=== PATIENT | female | born 1970 | race American Indian/Alaskan Native ===

== ENCOUNTER 2016-10-06 09:30 | Inpatient (IN) | payer MEDICARE ==
--- NOTE | 2016-11-17 10:37 | Anesthesia Consultation ---
Anesthesia Consult and Med Hx - Airway Anesthetic Teeth Evaluation: Good ROM Head & Neck: Adequate Mental/Hyoid Distance: Adequate Mallampati Class: Class III Intubation Access Assessment: Probably Good - Pulmonary Exam CTA: Yes - Cardiac Exam Cardiac Exam: RRR - Pre-Operative Health Status ASA Pre-Surgery Classification: ASA3 Proposed Anesthetic Plan: General - Pulmonary Hx Smoking: Yes (1/2 PPD FOR 5 YRS, QUIT 05/2016) Hx Respiratory Symptoms: (h/o PE (2014)) Hx Sleep Apnea: Yes (10 years uses CPAP nightly) - Cardiovascular System Hx Hypertension: Yes (FOR 7YRS) - Central Nervous System Hx Neuromuscular Disorder: Yes (osteoarthritis) Hx Psychiatric Problems: Yes (anxiety, depression) - Gastrointestinal Hx Gastroesophageal Reflux Disease: Yes (controlled) - Hematic Hx Anemia: Yes (chronic) - Other Systems Hx Cancer: No Hx Obesity: Yes (BMI 73.8) - Additional Comments Anesthesia Medical History Comments: Pt states no problem with prior anesthetics. HTN,Past smoker, [place], Anemia, Hx PW, Morbid obesity with BMI >73. Cardiac Clearance on chart as well as medical clearance.
[2016-11-17 11:18] LABS: Basophils % (Auto) 0.7 % (0.0-1.8); Eosinophils % (Auto) 2.5 % (0.0-4.3); Hematocrit 31.4 % (30.3-42.9); Hemoglobin 9.8 gm/dl (10.1-14.3); Mean Corpuscular HGB Conc 31 % (30-34); Mean Corpuscular Volume 75 fl (79-97); Red Blood Count 4.18 M/mm3 (3.65-5.03)
[2016-11-17 11:19] LABS: Mean Corpuscular Hemoglobin 24 pg (28-32)
[2016-11-17 11:25] LABS: Bilirubin,Urine NEG (Negative); Blood,Urine NEG (Negative); Ketones,Urine NEG (Negative); Leukocyte Esterase,Urine NEG (Negative); Mucus,Urine FEW /HPF; Nitrite,Urine NEG (Negative); Protein,Urine <15 mg/dL mg/dL (Negative); Urobilinogen,Urine < 2.0 mg/dL (<2.0)
[2016-11-17 11:26] LABS: Platelet Count 149 K/mm3 (140-440)
[2016-11-17 12:33] LABS: Alanine Aminotransferase 13 units/L (7-56); Albumin 3.6 g/dL (3.9-5); Albumin/Globulin Ratio 1.2 %; Alkaline Phosphatase 67 units/L (35-129); Anion Gap 18 mmol/L; Bilirubin,Total 0.2 mg/dL (0.1-1.2); Blood Urea Nitrogen 14 mg/dL (7-17); Carbon Dioxide 24 mmol/L (22-30); Chloride 102.6 mmol/L (98-107); Cholesterol 119 mg/dL (50-199); Glucose 93 mg/dL (65-100); HDL Cholesterol 48 mg/dL (40-59); LDL Cholesterol,Direct 54 mg/dL (50-130); Potassium 4.3 mmol/L (3.6-5.0); Sodium 140 mmol/L (137-145); Total Protein 6.7 g/dL (6.3-8.2); Triglycerides 88 mg/dL (2-149)
[2016-11-24] MEDS ORDERED: NACL 0.9% 1000 ML 1,000 ML IV SCH (00:05)
[2016-11-24] MEDS ORDERED: VERSED IV NR (00:05)
[2016-11-24] MEDS ORDERED: PEPCID PO NR (00:05)
[2016-11-24] MEDS ORDERED: DIPRIVAN 10 MG/ML IV ONE ×3 (09:28→11:16)
[2016-11-24] MEDS ORDERED: XYLOCAINE MPF 2% ONE (09:28)
[2016-11-24] MEDS ORDERED: DILAUDID ONE ×2 (09:28→13:05)
[2016-11-24] MEDS ORDERED: QUELICIN ONE ×2 (09:31→11:39)
[2016-11-24] MEDS ORDERED: ZEMURON IV ONE ×3 (09:32→11:39)
[2016-11-24] MEDS ORDERED: ANCEF/STERILE WATER 2 GM/20 ML IV NR (10:00)
[2016-11-24] MEDS ORDERED: FLAGYL 500 MG/100 ML 100 ML IV NR (10:00)
[2016-11-24] MEDS ORDERED: ZOFRAN IV PRN (10:08)
--- NOTE | 2016-11-24 10:08 | Anesthesia Day of Surgery ---
Anesthesia Day of Surgery - Day of Surgery Patient Examined: Yes Patient H&P Reviewed: Yes Patient is NPO: Yes Cardiac Clearance: Yes
[2016-11-24] MEDS ORDERED: TRANSDERM-SCOP TD NR (11:00)
[2016-11-24] MEDS ORDERED: LOVENOX SUB-Q NR (11:00)
[2016-11-24] MEDS ORDERED: D5W/0.45% NACL/KCL 20 MEQ 1,000 ML IV SCH (11:00)
--- NOTE | 2016-11-24 11:13 | Admit Criteria Form ---
Admission Criteria Documentation: AMBULATORY SURGERY EXCEPTION CRITERIA Ambulatory Surgery Exception Criteria ( Place 'X' for any and all applicable criteria): Surgery or procedure performed on ambulatory basis may require inpatient stay for[A] ANY ONE of the following(1)(2)(3)(4)(5)(6)(7)(8)(9): [X] I. A preoperative situation, condition, or finding that warrants inpatient stay as indicated by ANY ONE of the following: [] a) Inpatient care needed because of severity of a disease or condition rather than the surgery (eg, severe cardiac or respiratory disease, severe infection) (15) (16 ) (17) (18) [] b) Emergent procedure (eg, angioplasty for acute ischemia)(19) [] c) Complex surgical approach or situation as indicated by ANY ONE of the following(3): [] i) Open approach needed instead of usual endoscopic, transcatheter, or other less invasive procedure [] ii) Difficult approach because of previous operation [] iii) Airway monitoring required after open neck procedures(20)(21) [] iv) Large mass requiring unusually extensive dissection [] v) Additional complicating feature requiring inpatient care (eg, drain management)(22(23): [X] d) Major surgery in a pt with high anesthetic risk as indicated by ANY ONE of the following (2)(3)(5)(7)(8): [X] i) ASA risk class III or higher (severe systemic disease impairing function) [D] [] ii) Advanced age (eg, older than 85 years)(14)(24) [] iii) Symptomatic heart failure(25) [] iv) Symptomatic asthma or COPD(8)(21) [] v) Morbid obesity with hemodynamic or respiratory problems(20)( 21)(26)(27) [X] vi) Obstructive sleep apnea(20)(21) [] vii) Former premature infants who are younger than 60 weeks [] viii) High risk for severe postoperative abnormalities (eg, severe postoperative hypocalcemia after parathyroidectomy for severe hyperparathyroidism)(27)( 28) [] ix) Unstable angina(25) [] e) Drug-related risk requiring inpatient stay as indicated by ANY ONE of the following(5)(10)(14)(32)(33) [] i) Procedure requires discontinuing drugs or other therapy (eg , antiarrhythmic medication, antiseizure medication), which necessitates inpatient observation or treatment.(18)(31) [] ii) Major surgery and high risk drug use as indicated by ANY ONE of the following: [] 1) Active abuse of cocaine or similar drug [] 2) Monoamine oxidase inhibitor use [] 3) Other drug identified as posing risk [] f) Inadequate outpatient care situation as indicated by ANY ONE of the following(5)(10)(14)(32)(33) [] i) Patient lives remote from medical facility and procedure has urgent complication potential, and temporary nearby residence cannot be arranged [] ii) Patient will have postprocedure incapacitation and inadequate assistance at home, or alternative level of care cannot be arranged. [] iii) Patient will have long general anesthesia or procedure side effect resolution time, and competent person to stay with patient on first postoperative night at home or alternative level of care cannot be arranged. []iv) Other inadequate outpatient situation that cannot be handled by other means [] II. A perioperative event, condition, or finding that warrants inpatient stay as indicated by ANY ONE of the following (1)(2)(3): [] a) Inadequate physiologic recovery: cardiovascular, respiratory, or hemodynamic status not normal or near preoperative baseline(18) [] b) Hemodynamic instability [] c) Patient not alert with near normal or baseline mental status [] d) Temperature not normal or as expected and not appropriate for outpatient treatment of condition [] e) Ambulatory or appropriate activity level status not yet achieved post procedure [E](34)(35)(36) [] f) Operative site not appropriate (eg, unexpected or excessive drainage or bleeding) [] g) Postoperative effects not resolved or adequately managed (eg, significant pain or vomiting not appropriate for outpatient or next level of care)(10)(12) [] h) Complicating features requiring inpatient care as indicated by ANY ONE of the following(37): [] i) Severe complications of procedure (eg, bowel injury, airway compromise, vascular injury,severe hemorrhage) [] ii) Extensive (eg, dissection far beyond usual scope of procedure ) or prolonged (eg, 120 minutes beyond usual) surgery needed requiring inpatient postoperative care [] iii) Conversion to an open or complex procedure that requires inpatient care (eg, open vs laparoscopic cholecystectomy, abdominal vs vaginal hysterectomy)(38) [] iv) Comorbid condition or test result identified during or post procedure that requires inpatient care (7) [] v) Malignant hyperthermia(30) [] vi) Other complicating feature requiring inpatient care(22)(23) Inpatient stay may be needed until ALL of the following are present (1)(2)(3)(4) (5)(6)(10)(14)(33)(40): []a) Physiologic recovery: cardiovascular, respiratory, and hemodynamic status normal or near preoperative baseline []b) Hemodynamic stability []c) Patient alert, with near normal or baseline mental status []d) Temperature appropriate: patient afebrile or temperature appropriate for outpt treatment of condition []e) Activity level appropriate: ambulatory or appropriate activity level post procedure []f) Operative site appropriate as indicated by ALL of the following: []i) Site dry or with expected drainage []ii) Any blood noted is as expected for procedure. []g) Postoperative effects resolved or managed as indicated by ALL of the following: []i) Pain management appropriate for outpatient (or next level of) care(10) []ii) Minimal nausea and vomiting: if present, successfully treated with oral medication(12) []iii) Headache, dizziness, or drowsiness (if present) are mild. []h) Voiding status acceptable as indicated by ANY ONE of the following: []i) Voiding spontaneously []ii) No voiding but instructions given for follow-up in 6 to 8 hours []iii) Urinary catheter in place, and instructions given for follow-up []i) Complicating features requiring inpatient care manageable at a lower level of care(37) []j) Comorbid conditions manageable at a lower level of care(37) The original [facility] content created by [employer] has been revised. The portions of the content which have been revised are identified through the use of italic text or in bold, and [facility] has neither reviewed nor approved the modified material. All other unmodified content is copyright [facility]. Please see references footnoted in the original [facility] edition 2016 Admission Criteria Met: Yes
[2016-11-24] MEDS ORDERED: DECADRON ONE (11:20)
[2016-11-24] MEDS ORDERED: XYLOCAINE 1% 20 mL INFILTRATI ONE (11:53)
[2016-11-24] MEDS ORDERED: NACL 0.9% IR ONE (11:53)
[2016-11-24] MEDS ORDERED: MARCAINE-EPI 0.5%-1:200,000 INFILTRATI ONE (11:53)
[2016-11-24] MEDS ORDERED: NEO SYNEPHRINE ONE (12:10)
[2016-11-24] MEDS ORDERED: NACL 0.9% 100 ML ONE ×2 (12:10→12:46)
[2016-11-24] MEDS ORDERED: ROBINUL ONE ×2 (12:47)
[2016-11-24] MEDS ORDERED: BLOXIVERZ ONE (12:48)
[2016-11-24] MEDS ORDERED: ZOFRAN ONE (12:48)
[2016-11-24] MEDS: ZOFRAN IV PRN (13:49)
[2016-11-24] MEDS: DILAUDID IV PRN ×2 (13:50→14:10)
--- NOTE | 2016-11-24 14:19 | Post Anesthesia Evaluation ---
- Post Anesthesia Evaluation Patient Participated: Yes Airway Patent: Yes Stable Respiratory Function: Yes Nausea/Vomiting: No Temp > 96.8F: Yes Pain Manageable: Yes Adequeate Hydration: Yes Anesthesia Complications: No Block Receding Appropriately: Not Applicable Patient on Ventilator: No
[2016-11-24] MEDS: MORPHINE IV PRN ×2 (16:25→21:47)
[2016-11-25] MEDS: ZOFRAN IV PRN (00:30)
[2016-11-25] MEDS: MORPHINE IV PRN ×2 (02:14→08:10)
[2016-11-25] MEDS: NORCO PO PRN ×2 (05:05→10:20)
[2016-11-25 05:50] LABS: Phosphorous 2.2 mg/dL (2.5-4.5)
[2016-11-25 09:23] LABS: Basophils % (Auto) 0.1 % (0.0-1.8); Hematocrit 31.7 % (30.3-42.9); Hemoglobin 9.9 gm/dl (10.1-14.3); Mean Corpuscular HGB Conc 31 % (30-34); Mean Corpuscular Volume 74 fl (79-97); Platelet Count 193 K/mm3 (140-440); Red Blood Count 4.28 M/mm3 (3.65-5.03); Red Cell Distribution Width 15.7 % (13.2-15.2); White Blood Count 10.7 K/mm3 (4.5-11.0)
[2016-11-25 09:42] LABS: Alanine Aminotransferase 18 units/L (7-56); Albumin 3.7 g/dL (3.9-5); Albumin/Globulin Ratio 1.1 %; Alkaline Phosphatase 64 units/L (35-129); Anion Gap 22 mmol/L; BUN/Creatinine Ratio 11.25; Bilirubin,Total 0.4 mg/dL (0.1-1.2); Blood Urea Nitrogen 9 mg/dL (7-17); Calcium 9.1 mg/dL (8.4-10.2); Carbon Dioxide 23 mmol/L (22-30); Chloride 99.9 mmol/L (98-107); Glucose 132 mg/dL (65-100); Potassium 4.5 mmol/L (3.6-5.0); Sodium 140 mmol/L (137-145); Total Protein 7.1 g/dL (6.3-8.2)
[2016-11-25 09:47] LABS: Mean Corpuscular Hemoglobin 23 pg (28-32)
[2016-11-25] MEDS ORDERED: LOVENOX SUB-Q SCH (10:00)
[2016-11-25 12:53] VITALS: BP 111/66
--- NOTE | 2016-11-25 12:58 | Discharge Summary ---
Providers - Providers Date of Admission: 11/24/16 09:26 Date of discharge: 11/25/16 Attending physician: ROSE MARY SEGOVIA Hospitalization Condition: Good Procedures: Lap gastric Sleeve Disposition: DISCHARGED TO HOME OR SELFCARE - Discharge Diagnoses (1) Morbid (severe) obesity due to excess calories Status: Chronic Core Measure Documentation - Palliative Care Palliative Care/ Comfort Measures: Not Applicable - Core Measures Any of the following diagnoses?: none Exam - Constitutional Vitals: Temp Pulse Resp BP Pulse Ox 98 F 78 20 111/66 98 11/25/16 12:52 11/25/16 12:52 11/25/16 12:52 11/25/16 12:52 11/25/16 12:52 General appearance: Present: no acute distress, well-nourished - EENT Eyes: Present: PERRL, EOM intact ENT: hearing intact, clear oral mucosa, dentition normal - Neck Neck: Present: supple, normal ROM - Respiratory Respiratory effort: normal Respiratory: bilateral: CTA - Cardiovascular Rhythm: regular - Extremities Extremities: no ischemia, No edema Peripheral Pulses: within normal limits - Abdominal General gastrointestinal: Present: soft, non-tender, normal bowel sounds Female genitourinary: Present: deferred - Rectal Rectal Exam: deferred - Integumentary Integumentary: Present: clear, warm, dry - Musculoskeletal Musculoskeletal: strength equal bilaterally - Psychiatric Psychiatric: appropriate mood/affect Plan Activity: no restrictions Weight Bearing Status: Full Weight Bearing Diet: other (Bariatric) Wound: keep clean and dry Follow up with: MANUEL SUNG [Other] - 7 Days ROSE MARY SEGOVIA MD [Staff Physician] - 7 Days
== END 2016-11-25 15:35 | disposition home or self-care (01) | DRG 327 ==
LOC: 3A 11-24 09:26 → 2B-SURG 11-24 13:44
PROVIDERS: ADMIT Specialist; ATTEND Specialist
PROC: 0BQS4ZZ (ICD-10-PCS; principal; 2016-11-24)
PROC: 0BQR4ZZ (ICD-10-PCS; principal; 2016-11-24)
PROC: 5A09357 Assistance with Respiratory Ventilation, Less than 24 Consecutive Hours, Continuous Positive Airway Pressure (ICD-10-PCS; principal; 2016-11-24)
PROC: 0DB64Z3 Excision of Stomach, Percutaneous Endoscopic Approach, Vertical (ICD-10-PCS; principal; 2016-11-24)
DX: K44.9 Diaphragmatic hernia without obstruction or gangrene (principal); Z68.45 Body mass index [BMI] 70 or greater, adult; E66.01 Morbid (severe) obesity due to excess calories; K21.9 Gastro-esophageal reflux disease without esophagitis; I10 Essential (primary) hypertension; M19.90 Unspecified osteoarthritis, unspecified site; F41.9 Anxiety disorder, unspecified; F32.9 Major depressive disorder, single episode, unspecified; Z87.891 Personal history of nicotine dependence; Z86.711 Personal history of pulmonary embolism; Z90.710 Acquired absence of both cervix and uterus; G47.30 Sleep apnea, unspecified
CPT/HCPCS: 36415; 80053; 80061; 81001; 83735; 84100; 85025; 88307; 93005; 93010; 94660; 94760; C9250; J0330; J0690; J1100; J1170; J1650; J2250; J2270; J2370; J2405; J2704; J2710; J7030